=== PATIENT | female | born 1950 | race Caucasian/White ===

== ENCOUNTER → 2018-05-11 | Outpatient (CLI) | payer MEDICARE ==
--- NOTE | 2018-05-16 10:45 | MAM ---
EXAM DESCRIPTION: 3D Screening BILATERAL : Digital Mammography. CLINICAL HISTORY: 68 years Female SCREENING . No complaints. No personal or family history of breast cancer. Childbirth. Hysterectomy 30 years ago. HRT 5 or more years ago. Lifetime risk of developing breast cancer (Tyrer-Cuzick model)(%): 4.8. COMPARISON: 2-D digital screening bilateral mammography 04/11/2012. TECHNIQUE: Bilateral CC and MLO projection full-field images, digital tomosynthesis mammographic technique. Bilateral digital 2-D full-field MLO images. CAD not available for tomosynthesis or 2-D images. FINDINGS: The breast parenchymal density pattern is: Scattered areas of fibroglandular density. No skin thickening or nipple retraction. Bilateral vascular calcifications. Bilateral solitary microcalcifications. Small region of focal asymmetry and/or architectural distortion middle third of the left breast upper outer quadrant, 8 cm from the nipple approximately 2:30 position. Not well seen on the prior 2-D digital study. No new focal, stellate mass or density, focal asymmetry , and no suspicious microcalcifications right breast. IMPRESSION: BI-RADS CATEGORY: 0 - INCOMPLETE- Need additional imaging evaluation. FOLLOW-UP: Recall for additional imaging: Targeted left breast ultrasound of the region of interest. Optional follow-up diagnostic left breast tomosynthesis depending on findings from ultrasound examination.. Written communication concerning the IMPRESSION and Follow-up, will be mailed to the patient and referring health care provider. Electronically signed by: Manuel Boo MD 05/16/2018 10:42 AM CDT
== END ==
LOC: MAMMO 14:26
PROVIDERS: ATTEND Emergency Medicine
DX: Z12.31 Encounter for screening mammogram for malignant neoplasm of breast (principal)

== ENCOUNTER → 2018-06-19 | Outpatient (CLI) | payer MEDICARE ==
--- NOTE | 2018-06-20 18:02 | US ---
EXAM DESCRIPTION: Breast,Left: Ultrasound CLINICAL HISTORY: 68 yearsFemaleABNORMAL ANDF INCONCLUSIVE FINDINGS ON DX IMAGING OF BREAST LFT COMPARISON: Bilateral screening digital breast tomosynthesis 05/11/2018. TECHNIQUE: Transcutaneous scanning of the left breast utilizing leo-scale and Doppler modes. Scanning performed by the nutrition program instructor with observation by Dr. Boo. FINDINGS: Scanning of the upper-outer quadrant of the left breast from the 2:00 sector to the 4:00 sector. Mostly fatty echotexture Anechoic oval-shaped objects circumscribed margins wider than tall orientation and posterior acoustic enhancement is visualized. Greatest diameter 4.4 mm. No abnormal vascularity. Most likely a cyst. No dominant solid mass. No parenchymal edema or large calcifications. No overlying skin changes. Normal vascularity. IMPRESSION: Benign exam. BIRAD CATEGORY: 2 BENIGN FINDINGS. RECOMMENDATIONS: FOLLOW UP: Routine digital bilateral mammographic screening, one year interval from May 2018. Written communication explaining the IMPRESSION and follow-up, will be mailed to the patient and referring health care provider. The FINDINGS and the FOLLOW-UP plan were reviewed in person with the patient after the examination. According to the [employer], yearly mammograms are recommended starting at age 40 and continuing as long as a woman is in good health. Any breast change noted on a breast self-exam should be reported promptly to the patient's healthcare provider. Breast MRI is recommended for women with an approximately 20-25% or greater lifetime risk of breast cancer, including women with a strong family history of breast or ovarian cancer and women who have been treated for Hodgkin's disease. A negative mammographic report should not delay tissue diagnosis in patients with significant clinical history or physical findings. Extremely dense breast tissue limits the sensitivity of digital mammography. Electronically signed by: Manuel Boo MD 06/20/2018 5:59 PM CDT
== END ==
LOC: MAMMO 13:30
PROVIDERS: ATTEND Emergency Medicine
DX: R92.8 Other abnormal and inconclusive findings on diagnostic imaging of breast (principal)